=== PATIENT | female | born 1955 | race Hispanic/Latino ===

== ENCOUNTER 2017-06-27 09:00 | Outpatient (CLI) | payer OTHER ==
--- NOTE | 2017-06-27 16:37 | Mammography Report ---
BILATERAL DIGITAL AUGMENTED SCREENING MAMMOGRAM with CAD: 06/27/17 09:00:00 CLINICAL: Routine screening. COMPARISON:None available. FINDINGS: Screening views with and without implant displacement demonstrate mostly fatty breasts with few bilateral residual retroareolar fibroglandular densities. No mass, architectural distortion or suspicious calcifications. Intact and subpectoral implants. IMPRESSION: No mammographic evidence of malignancy. BI-RADS CATEGORY: 2 -- Benign RECOMMENDATION: Routine mammographic screening in one year. ACR BI-RADS MAMMOGRAPHIC CODES: 0 = Needs additional imaging evaluation; 1 = Negative; 2 = Benign; 3 = Probably benign; 4 = Suspicious; 5 = Malignant; 6 = Known biopsy-proven malignancy COMMENT: 1. Dense breast tissue, i.e., adenosis, fibrocystic changes, etc., may obscure an underlying neoplasm. 2. Approximately 10% of cancers are not detected with mammography. 3. A negative mammography report should not delay biopsy if a clinically suspicious mass is present. COMMENT: Patient follow-up letters are generated via our [employer] application.
== END 2017-06-27 09:01 | disposition home or self-care (01) ==
LOC: MAMMO 09:00
PROVIDERS: ATTEND Internal Medicine
DX: Z12.31 Encounter for screening mammogram for malignant neoplasm of breast (principal)
CPT/HCPCS: 77067

== ENCOUNTER 2019-02-15 11:29 | Day surgery (SDC) | payer OTHER ==
[~2019-02-15 11:29] MED LIST: IOPIDINE ONE; MYDRIACYL ONE; NEOFRIN ONE
[2019-02-15] MEDS ORDERED: IOPIDINE OS ONE ×2 (11:58→12:54)
[2019-02-15] MEDS ORDERED: MYDRIACYL OS ONE (11:58)
[2019-02-15] MEDS ORDERED: NEOFRIN OS ONE (11:58)
[2019-02-15 12:44] VITALS: BP 128/90
== END 2019-02-15 12:57 | disposition home or self-care (01) ==
LOC: OR 11:29
PROVIDERS: ATTEND Specialist
DX: H26.492 Other secondary cataract, left eye (principal); G43.909 Migraine, unspecified, not intractable, without status migrainosus; I10 Essential (primary) hypertension; K21.9 Gastro-esophageal reflux disease without esophagitis; M19.90 Unspecified osteoarthritis, unspecified site; F32.9 Major depressive disorder, single episode, unspecified; Z90.49 Acquired absence of other specified parts of digestive tract; Z79.899 Other long term (current) drug therapy; Z87.891 Personal history of nicotine dependence; Z98.41 Cataract extraction status, right eye; Z98.42 Cataract extraction status, left eye; Z98.890 Other specified postprocedural states; Z79.82 Long term (current) use of aspirin; Z98.82 Breast implant status